=== PATIENT | male | born 1945 | race Caucasian/White ===

== ENCOUNTER 2019-04-14 18:13 | Inpatient (IN) | payer MEDICARE, MEDICAID ==
[2019-04-14] MEDS ORDERED: HYDROMORPHONE HCL 2 MG/ML SOL IV ONE (18:32)
[2019-04-14] MEDS ORDERED: SODIUM CHLORIDE 0.9% 1000ML 1,000 ML IV ONE (18:33)
[2019-04-14 18:48] LABS: BASOPHILS % (AUTO) 1 % (0-3); EOSINOPHILS % (AUTO) 0 % (0-9); HEMATOCRIT 42 % (39-53); HEMOGLOBIN 13.3 gm/dl (13.5-17.7); LYMPHOCYTES % (AUTO) 1.5 % (10-50); MEAN CORPUSCULAR HEMOGLOBIN 28.5 pg (27.0-32.0); MEAN CORPUSCULAR VOLUME 89 fL (80-100); MONOCYTES % (AUTO) 2.7 % (0-12); NEUTROPHILS % (AUTO) 95.1 % (37-80)
[2019-04-14] MEDS ORDERED: HYDROMORPHONE 1 MG/ML SYRINGE ONE (18:50)
[2019-04-14] MEDS ORDERED: HYDROMORPHONE 1 MG/ML SYRINGE IV ONE (18:53)
[2019-04-14 19:03] LABS: ALBUMIN 3.5 gm/dl (3.4-5.0); BILIRUBIN,TOTAL 3.6 mg/dl (0.2-1.0); CALCIUM 9.6 mg/dl (8.5-10.1); CARBON DIOXIDE 34.4 mEq/L (21-32); CREATININE 1.3 mg/dl (0.80-1.30); CRP INFLAMMATORY 0.35 mg/dl (0.00-0.33); POTASSIUM 4.2 mMol/L (3.5-5.1); TOTAL PROTEIN 7.4 gm/dl (6.4-8.2)
[2019-04-14 22:01] LABS: APPEARANCE,URINE Clear; BILIRUBIN,URINE 1+ (NEGATIVE); GLUCOSE, URINE (UA) NEGATIVE (NEGATIVE); KETONES,URINE NEGATIVE (NEGATIVE); LEUKOCYTE ESTERASE ,URINE NEGATIVE (NEGATIVE); NITRATE,URINE NEGATIVE (NEGATIVE); OCCULT BLOOD,URINE 2+ (NEG-TRACE)
[2019-04-14 22:53] LABS: BACTERIA RARE (< 1+); COLOR,URINE DK YELLOW; CRYSTALS NEGATIVE (0-3 AVE/HPF); EPITHELIAL CELLS 0-1 (SQUAMOUS); WBC,URINE NEG (0-5AV/HPF)
[2019-04-14 22:55] LABS: AMYLASE 3176 IU/L (25-115)
[2019-04-14 23:02] LABS: AMPHETAMINES NEGATIVE (NEGATIVE); BARBITUATES NEGATIVE (NEGATIVE); BENZODIAZEPINES NEGATIVE (NEGATIVE); CANNABINOL(THC) NEGATIVE (NEGATIVE); COCAINE(COC) NEGATIVE (NEGATIVE); ICTOTEST,URINE POSITIVE (NEGATIVE); METHADONE NEGATIVE (NEGATIVE); METHAMPHETAMINES NEGATIVE (NEGATIVE); OPIATES(OPI) NEGATIVE (NEGATIVE); OXYCODONE(OXY) NEGATIVE (NEGATIVE); PROPOXYPHENE(PPX) NEGATIVE (NEGATIVE); TRICYCLIC ANTIDEPRESSANTS NEGATIVE (NEGATIVE)
[2019-04-14] MEDS ORDERED: ROPINIROLE HCL 0.5 MG TAB PO PRN (23:53)
[2019-04-14] MEDS ORDERED: MAGNESIUM HYDROXIDE 30 ML SUS PO PRN (23:53)
[2019-04-14] MEDS ORDERED: ALUMINUM/MAGNESIUM 30 ML SUS PO PRN (23:53)
[2019-04-15] MEDS ORDERED: HYDROMORPHONE 1 MG/ML SYRINGE IV PRN (00:02)
[2019-04-15] MEDS ORDERED: ONDANSETRON HCL 4 MG/2 ML SOL IV PRN (00:03)
[2019-04-15] MEDS ORDERED: SODIUM CHLORIDE 0.9% 1000ML 1,000 ML IV SCH (00:15)
[2019-04-15] MEDS: SODIUM CHLORIDE 0.9% FLUSH 10 ML SOL IV SCH ×2 (02:43→10:14)
[2019-04-15] MEDS ORDERED: PIPERACILLIN/TAZOBACT 3.375 GM 3.375 GM in SODIUM CHLORIDE 0.9% 100 ML 100 ML IV ONE (07:33)
[2019-04-15] MEDS ORDERED: PIPERACILLIN/TAZOBACT 3.375 GM PDS IV ONE (07:35)
[2019-04-15 07:42] LABS: BASOPHILS % (AUTO) 0 % (0-3); EOSINOPHILS % (AUTO) 0 % (0-9); HEMATOCRIT 34 % (39-53); HEMOGLOBIN 11.2 gm/dl (13.5-17.7); LYMPHOCYTES % (AUTO) 2.1 % (10-50); MEAN CORPUSCULAR HEMOGLOBIN 29.5 pg (27.0-32.0); MEAN CORPUSCULAR VOLUME 89 fL (80-100); MONOCYTES % (AUTO) 4.5 % (0-12)
[2019-04-15] MEDS ORDERED: HYDROMORPHONE HCL 2 MG/ML SOL IV PRN (07:46)
[2019-04-15] MEDS: HYDROMORPHONE 1 MG/ML SYRINGE IV PRN ×2 (08:03→08:31)
[2019-04-15] MEDS ORDERED: LACTATED RINGERS 1,000 ML IV ONE (08:20)
[2019-04-15 08:24] VITALS: TEMP 97.4
[2019-04-15 08:50] VITALS: BP 102/63; PULSE 88; RESP 16; O2SAT 95
[2019-04-15] MEDS ORDERED: FOLIC ACID 1 MG TAB PO SCH (09:00)
[2019-04-15] MEDS ORDERED: ASPIRIN EC 81 MG PO SCH (09:00)
[2019-04-15] MEDS ORDERED: LEVETIRACETAM 250 MG TAB PO SCH (09:00)
[2019-04-15] MEDS ORDERED: FLUOXETINE HYDROCHLORIDE 10 MG CAP PO SCH (09:00)
[2019-04-15] MEDS ORDERED: THIAMINE 100 MG TAB PO SCH (09:00)
[2019-04-15] MEDS ORDERED: TORSEMIDE 20 MG TAB PO SCH (09:00)
[2019-04-15] MEDS ORDERED: TRAMADOL HYDROCHLORIDE 50 MG TAB PO SCH (09:00)
[2019-04-15] MEDS ORDERED: FUROSEMIDE 20 MG TAB PO SCH (09:00)
[2019-04-15] MEDS ORDERED: DILTIAZEM HCL 180 MG PO SCH (09:00)
[2019-04-15] MEDS ORDERED: LISINOPRIL 20 MG TAB PO SCH (09:00)
[2019-04-15] MEDS ORDERED: BUSPIRONE HCL 10 MG PO SCH (09:00)
[2019-04-15] MEDS ORDERED: POTASSIUM CHLORIDE 10 MEQ TER PO SCH (09:00)
[2019-04-15] MEDS ORDERED: CLOPIDOGREL 75 MG TAB PO SCH (09:00)
[2019-04-15] MEDS ORDERED: MAGNESIUM AMINO ACID CHELATE PO SCH (09:00)
[2019-04-15] MEDS ORDERED: RANITIDINE HCL 150 MG TAB PO SCH (21:00)
== END 2019-04-15 09:00 | disposition short-term general hospital (02) | DRG 440 ==
LOC: ED 18:13 → ACUTE CARE 22:53
PROVIDERS: ADMIT Family Medicine; ATTEND Family Medicine
DX: K85.90 Acute pancreatitis without necrosis or infection, unspecified (principal); R10.13 Epigastric pain; K85.10 Biliary acute pancreatitis without necrosis or infection; R94.5 Abnormal results of liver function studies; Z72.89 Other problems related to lifestyle; F19.10 Other psychoactive substance abuse, uncomplicated; I48.2 Chronic atrial fibrillation; R11.2 Nausea with vomiting, unspecified; R10.9 Unspecified abdominal pain
CPT/HCPCS: 36415; 74176; 80053; 80305; 81001; 82150; 85025; 87040; 93005; 94762; 96365; 96366; 96374; 99070; 99222; 99238; 99285; J1170; J2405; J2543; A9270-GY

== ENCOUNTER 2019-04-22 00:20 | Emergency (ER) | payer MEDICARE, MEDICAID ==
[2019-04-22] MEDS ORDERED: APAP/HYDROCODONE 1 EACH TABLET ONE ×2 (00:56→02:18)
[2019-04-22] MEDS ORDERED: APAP/HYDROCODONE 1 EACH TABLET PO ONE ×2 (00:56→01:33)
[2019-04-22 01:11] LABS: BASOPHILS % (AUTO) 1 % (0-3); EOSINOPHILS % (AUTO) 3 % (0-9); HEMATOCRIT 35 % (39-53); HEMOGLOBIN 11.4 gm/dl (13.5-17.7); LYMPHOCYTES % (AUTO) 9.9 % (10-50); MEAN CORPUSCULAR HEMOGLOBIN 29.4 pg (27.0-32.0); MEAN CORPUSCULAR HGB CONC 32.5 gm/dl (32.0-36.0); MEAN CORPUSCULAR VOLUME 91 fL (80-100); MONOCYTES % (AUTO) 7.6 % (0-12); NEUTROPHILS % (AUTO) 78.6 % (37-80)
[2019-04-22 01:23] VITALS: TEMP 97.5
[2019-04-22 01:25] LABS: ALBUMIN 2.6 gm/dl (3.4-5.0); ALKALINE PHOSPHATASE 765 IU/L (46-116); ALT 53 IU/L (14-63); AST 39 IU/L (15-37); BILIRUBIN,TOTAL 4.3 mg/dl (0.2-1.0); BLOOD UREA NITROGEN 9 mg/dl (7-18); CALCIUM 9.1 mg/dl (8.5-10.1); CARBON DIOXIDE 34.7 mEq/L (21-32); CHLORIDE 102 mMol/L (98-107); CREATININE 0.84 mg/dl (0.80-1.30); GLUCOSE 217 mg/dl (74-106); POTASSIUM 3.9 mMol/L (3.5-5.1); SODIUM 139 mMol/L (136-145); TOTAL PROTEIN 6.4 gm/dl (6.4-8.2); TROP I < 0.017 ng/ml (0.000-0.056)
[2019-04-22 02:36] VITALS: O2SAT 97
[2019-04-22 02:37] VITALS: BP 183/114; PULSE 71; RESP 17
== END 2019-04-22 02:30 | DRG 392 ==
LOC: ED 00:20
DX: R10.13 Epigastric pain (principal); F10.239 Alcohol dependence with withdrawal, unspecified; I48.91 Unspecified atrial fibrillation
CPT/HCPCS: 36415; 80053; 84484; 85025; 93005; 99283; 99284; A9270-GY

== ENCOUNTER 2019-04-25 01:30 | Emergency (ER) | payer MEDICARE, MEDICAID ==
[2019-04-25 01:34] VITALS: RESP 20; TEMP 96.9
[2019-04-25 02:31] LABS: BASOPHILS % (AUTO) 1 % (0-3); EOSINOPHILS % (AUTO) 2 % (0-9); HEMATOCRIT 32 % (39-53); HEMOGLOBIN 10.2 gm/dl (13.5-17.7); LYMPHOCYTES % (AUTO) 12.3 % (10-50); MEAN CORPUSCULAR HEMOGLOBIN 29.4 pg (27.0-32.0); MEAN CORPUSCULAR VOLUME 92 fL (80-100); MONOCYTES % (AUTO) 7.4 % (0-12); NEUTROPHILS % (AUTO) 77.2 % (37-80)
[2019-04-25 02:44] LABS: ALBUMIN 2.7 gm/dl (3.4-5.0); BILIRUBIN,TOTAL 2.3 mg/dl (0.2-1.0); CALCIUM 8.6 mg/dl (8.5-10.1); CARBON DIOXIDE 36.4 mEq/L (21-32); POTASSIUM 3.7 mMol/L (3.5-5.1); TOTAL PROTEIN 6.2 gm/dl (6.4-8.2)
[2019-04-25] MEDS ORDERED: APAP/HYDROCODONE 1 EACH TABLET PO ONE (02:54)
[2019-04-25] MEDS ORDERED: APAP/HYDROCODONE 1 EACH TABLET ONE (03:05)
[2019-04-25 03:53] VITALS: BP 174/101; PULSE 61; O2SAT 97
== END 2019-04-25 03:46 | DRG 440 ==
LOC: ED 01:30
DX: K85.90 Acute pancreatitis without necrosis or infection, unspecified (principal); I48.2 Chronic atrial fibrillation; R10.13 Epigastric pain; Z72.89 Other problems related to lifestyle
CPT/HCPCS: 36415; 80053; 85025; 99283; A9270-GY

== ENCOUNTER 2019-05-19 06:54 | Emergency (ER) | payer MEDICARE, MEDICAID ==
[2019-05-19 07:06] VITALS: TEMP 97.3
[2019-05-19] MEDS ORDERED: PANTOPRAZOLE SODIUM 40 MG/10 ML PDS IV ONE (07:23)
[2019-05-19] MEDS ORDERED: SODIUM CHLORIDE 0.9% 1000ML 1,000 ML IV SCH (07:30)
[2019-05-19 07:32] LABS: BASOPHILS % (AUTO) 1 % (0-3); EOSINOPHILS % (AUTO) 3 % (0-9); HEMATOCRIT 37 % (39-53); HEMOGLOBIN 12.5 gm/dl (13.5-17.7); LYMPHOCYTES % (AUTO) 8.6 % (10-50); MEAN CORPUSCULAR HEMOGLOBIN 30.5 pg (27.0-32.0); MEAN CORPUSCULAR HGB CONC 34.1 gm/dl (32.0-36.0); MEAN CORPUSCULAR VOLUME 89 fL (80-100); MONOCYTES % (AUTO) 6.8 % (0-12); NEUTROPHILS % (AUTO) 80.8 % (37-80)
[2019-05-19] MEDS ORDERED: PANTOPRAZOLE SODIUM 40 MG/10 ML PDS ONE (07:43)
[2019-05-19] MEDS ORDERED: KETOROLAC TROMETHAMINE 30 MG/ML SOL IV ONE (07:43)
[2019-05-19] MEDS ORDERED: ALUMINUM/MAGNESIUM 30 ML SUS PO ONE (07:44)
[2019-05-19] MEDS ORDERED: LIDOCAINE HCL 2% (VISCOUS) 15 ML SOL MT ONE (07:44)
[2019-05-19 07:48] LABS: ALBUMIN 3.2 gm/dl (3.4-5.0); ALKALINE PHOSPHATASE 263 IU/L (46-116); ALT 25 IU/L (14-63); AMYLASE 67 IU/L (25-115); AST 18 IU/L (15-37); BILIRUBIN,TOTAL 0.9 mg/dl (0.2-1.0); BLOOD UREA NITROGEN 22 mg/dl (7-18); CARBON DIOXIDE 31.4 mEq/L (21-32); CHLORIDE 100 mMol/L (98-107); CREATININE 0.89 mg/dl (0.80-1.30); CRP INFLAMMATORY 0.16 mg/dl (0.00-0.33); GLUCOSE 196 mg/dl (74-106); SODIUM 137 mMol/L (136-145); TOTAL PROTEIN 6.7 gm/dl (6.4-8.2)
[2019-05-19 07:49] LABS: TROP I < 0.017 ng/ml (0.000-0.056)
[2019-05-19] MEDS ORDERED: KETOROLAC TROMETHAMINE 30 MG/ML SOL ONE (07:57)
[2019-05-19] MEDS ORDERED: ALUMINUM/MAGNESIUM 30 ML SUS ONE (07:57)
[2019-05-19] MEDS ORDERED: LIDOCAINE HCL 2% (VISCOUS) 15 ML SOL ONE (07:57)
[2019-05-19 08:33] VITALS: O2SAT 100
[2019-05-19 09:04] VITALS: RESP 18
[2019-05-19 10:21] VITALS: PULSE 84
[2019-05-19] MEDS ORDERED: FUROSEMIDE 20 MG TAB PO SCH (12:00)
[2019-05-19 12:43] VITALS: BP 174/95
[2019-05-19] MEDS ORDERED: CLOPIDOGREL 75 MG TAB PO ONE (13:21)
[2019-05-19] MEDS ORDERED: THIAMINE 100 MG TAB PO ONE (13:21)
[2019-05-19] MEDS ORDERED: LEVETIRACETAM 250 MG TAB PO SCH (13:30)
[2019-05-19] MEDS ORDERED: LISINOPRIL 20 MG TAB PO SCH (13:30)
[2019-05-19] MEDS ORDERED: BUSPIRONE HCL 5 MG TAB PO SCH (13:30)
[2019-05-20] MEDS ORDERED: DILTIAZEM ER 120 MG C24 PO SCH (09:00)
== END 2019-05-19 14:23 | DRG 391 ==
LOC: ED 06:54
DX: R10.13 Epigastric pain (principal); K85.10 Biliary acute pancreatitis without necrosis or infection; I48.2 Chronic atrial fibrillation; F19.11 Other psychoactive substance abuse, in remission
CPT/HCPCS: 80053; 82150; 83690; 84484; 85025; 86140; 93005; 96365; 96374; 96375; 99283; 99284; J1885; A9270-GY